=== PATIENT | female | born 1975 | race Caucasian/White ===

== ENCOUNTER 2016-09-14 16:43 | Inpatient (IN) | payer OTHER ==
[2016-09-14] MEDS ORDERED: ONDANSETRON 4 MG/2 ML VIAL IVPUSH ONE (17:27)
[2016-09-14] MEDS ORDERED: morphine CARPU-JECT 4 MG/1 ML DISP.SYRIN IVPUSH ONE ×2 (17:27→18:11)
[2016-09-14] MEDS ORDERED: SODIUM CHLORIDE 1,000 ML IV STA (17:27)
[2016-09-14] MEDS ORDERED: morphine CARPU-JECT 4 MG/1 ML DISP.SYRIN ONE (17:31)
[2016-09-14] MEDS ORDERED: ONDANSETRON 4 MG/2 ML VIAL ONE (17:32)
--- NOTE | 2016-09-14 17:38 | PDOC ---
History of Present Illness - General History Source: Patient Exam Limitations: No Limitations - History of Present Illness Initial Comments: 09/14/16 17:47 The patient is a 41 year old female, with a significant past medical history of GERD, Gastritis who presents to the emergency department with right flank and right upper quadrant abdominal pain. The patient states her abdominal pain began 2 days ago which was intermittent however had progressively worsened today. Patient describes the pain as stabbing, more than 10/10 in severity, radiating to her back and across her lower abdomen. The patient reports associated nausea but denies vomiting, diarrhea or constipation. Patient admits to taking omeprazole and Motrin however denies any relief. She denies dysuria, frequency, urgency or hematuria. She denies chest pain, headache or dizziness. Allergies: NKA Past surgical history: Appendectomy Social history: None PCP: None <Rossy Velarde - Last Filed: 09/14/16 18:09> - General History Source: Patient Exam Limitations: No Limitations <Josh Helton - Last Filed: 09/19/16 23:12> - General Chief Complaint: Pain Stated Complaint: STOMACH PAIN Time Seen by Provider: 09/14/16 17:04 Past History <Rossy Velarde - Last Filed: 09/14/16 18:09> - Past Medical History GI Disorders: Yes (gastritis) - Surgical History Appendectomy: Yes - Psycho/Social/Smoking Cessation Hx Anxiety: No Suicidal Ideation: No Smoking History: Never smoked Have you smoked in the past 12 months: No Information on smoking cessation initiated: No Hx Alcohol Use: No Drug/Substance Use Hx: No Substance Use Type: None <Josh Helton - Last Filed: 09/19/16 23:12> - Past Medical History Allergies/Adverse Reactions: Allergies Allergy/AdvReac Type Severity Reaction Status Date / Time No Known Allergies Allergy Verified 09/14/16 16:44 Home Medications: Ambulatory Orders Ondansetron [Zofran Odt -] 4 mg SL TID PRN #21 od.tablet 09/16/16 Oxycodone HCl/Acetaminophen [Percocet 5-325 mg Tablet] 1 tab PO Q6H PRN #20 tablet MDD 4 tabs 09/16/16 Review of Systems - Review of Systems Able to Perform ROS?: Yes Comments:: 09/14/16 17:49 GENERAL/CONSTITUTIONAL: No fever or chills. No weakness. HEAD, EYES, EARS, NOSE AND THROAT: No change in vision. No ear pain or discharge. No sore throat. CARDIOVASCULAR: No chest pain or shortness of breath. RESPIRATORY: No cough, wheezing, or hemoptysis. GASTROINTESTINAL: + nausea. + RLQ abdominal pain. No vomiting, diarrhea or constipation. GENITOURINARY: + R flank pain. No dysuria, frequency, or change in urination. MUSCULOSKELETAL: No joint or muscle swelling or pain. No neck or back pain. SKIN: No rash NEUROLOGIC: No headache, vertigo, loss of consciousness, or change in strength/ sensation. ENDOCRINE: No increased thirst. No abnormal weight change. HEMATOLOGIC/LYMPHATIC: No anemia, easy bleeding, or history of blood clots. ALLERGIC/IMMUNOLOGIC: No hives or skin allergy. <Rossy Velarde - Last Filed: 09/14/16 18:09> *Physical Exam - Vital Signs Last Vital Signs Temp Pulse Resp BP Pulse Ox 98.4 F 88 18 158/103 100 09/14/16 16:45 09/14/16 16:45 09/14/16 16:45 09/14/16 16:45 09/14/16 16:45 - Physical Exam Comments: 09/14/16 17:51 GENERAL: Awake, alert, and fully oriented, in moderate distress. + Uncomfortable appearing. HEAD: No signs of trauma EYES: PERRLA, EOMI, sclera anicteric, conjunctiva clear ENT: Auricles normal inspection, hearing grossly normal, nares patent, oropharynx clear without exudates. Moist mucosa NECK: Normal ROM, supple, no lymphadenopathy, JVD, or masses LUNGS: Breath sounds equal, clear to auscultation bilaterally. No wheezes, and no crackles HEART: Regular rate and rhythm, normal S1 and S2, no murmurs, rubs or gallops ABDOMEN: + R CVA tenderness. Gutierrez sign negative. Soft, nontender, normoactive bowel sounds. No guarding, no rebound. No masses EXTREMITIES: Normal range of motion, no edema. No clubbing or cyanosis. No cords, erythema, or tenderness NEUROLOGICAL: Cranial nerves II through XII grossly intact. Normal speech, normal gait SKIN: Warm, Dry, normal turgor, no rashes or lesions noted. <Rossy Velarde - Last Filed: 09/14/16 18:09> - Vital Signs Last Vital Signs Temp Pulse Resp BP Pulse Ox 98.4 F 88 18 158/103 100 09/14/16 16:45 09/14/16 16:45 09/14/16 16:45 09/14/16 16:45 09/14/16 16:45 <Josh Helton - Last Filed: 09/19/16 23:12> ED Treatment Course - LABORATORY CBC & Chemistry Diagram: 09/14/16 17:45 09/14/16 17:45 - Medications Given in the ED: ED Medications Discontinued Medications Generic Name Dose Route Start Last Admin Trade Name Freq PRN Reason Stop Dose Admin Morphine Sulfate 4 mg 09/14/16 17:27 09/14/16 17:40 Morphine Injection - IVPUSH 09/14/16 17:28 4 mg ONCE ONE Administration Ondansetron HCl 4 mg 09/14/16 17:27 09/14/16 17:40 Zofran Injection IVPUSH 09/14/16 17:28 4 mg ONCE ONE Administration <Rossy Velarde - Last Filed: 09/14/16 18:09> - LABORATORY CBC & Chemistry Diagram: 09/16/16 06:20 09/16/16 06:20 - RADIOLOGY Radiology Studies Ordered: Category Date Time Status SPIRAL- RENAL-STONE CT [CT] Stat CT Scan 09/14/16 17:26 Ordered ABDOMEN US -LIMITED [US] Stat Ultrasound 09/14/16 17:26 Ordered <Josh Helton - Last Filed: 09/19/16 23:12> Medical Decision Making - Medical Decision Making 09/14/16 17:31 A portion of this note was documented by scribe services under my direction. I have reviewed the details of the note, within reason, and agree with the documentation with the following case summary and management plan written by me. Patient treated in the ED. Nursing notes are reviewed and incorporated into the medical decision-making. Vital signs reviewed. Peripheral IV access obtained by the nurse, laboratory studies are drawn and sent, reviewed and interpreted by myself. Vital Signs Temp Pulse Resp BP Pulse Ox 98.4 F 88 18 158/103 100 09/14/16 16:45 09/14/16 16:45 09/14/16 16:45 09/14/16 16:45 09/14/16 16:45 41-year-old female patient with history of GERD presents with right flank and right upper quadrant abdominal pain. Patient has a history of appendectomy. Since Wednesday, the patient's been having a waxing and waning constant pain with associated nausea but no vomiting or fevers. Reports normal bowel movements. Denies dysuria or urinary frequency. Differential includes biliary pathology, stridorous, renal colic, pollen nephritis. We'll obtain a spiral CT, right upper quadrant ultrasound, labs, urinalysis and reassess. <Josh Helton - Last Filed: 09/19/16 23:12> *DC/Admit/Observation/Transfer - Attestations Scribe Attestion: 09/14/16 17:53 Documentation prepared by Rossy Velarde, acting as chief medical technologist for Josh Helton MD <Rossy Velarde - Last Filed: 09/14/16 18:09> <Josh Helton - Last Filed: 09/19/16 23:12> Diagnosis at time of Disposition: Acute cholecystitis - Discharge Dispostion Disposition: HOME Condition at time of disposition: Improved - Prescriptions
[2016-09-14 17:55] LABS: BASOPHIL 0.6 % (0-2.0); EOSINOPHIL 1.8 % (0-4.5); MCHC 30.2 g/dl (32.0-36.0); MEAN CELL VOLUME 63.1 fl (80-96); MEAN PLT VOLUME 8.6 fl (7.5-11.1); PLATELET COUNT 346 K/MM3 (134-434); RDW 19.7 % (11.6-15.6); WHITE BLOOD COUNT 9.3 K/mm3 (4.0-10.0)
[2016-09-14 17:57] LABS: URINE APPEARANCE CLEAR; URINE BILIRUBIN NEGATIVE (NEGATIVE); URINE BLOOD 3+ (NEGATIVE); URINE COLOR COLORLESS; URINE GLUCOSE (UA) NEGATIVE (NEGATIVE); URINE KETONE NEGATIVE (NEGATIVE); URINE LEUK ESTERASE TRACE (NEGATIVE); URINE NITRITE NEGATIVE (NEGATIVE); URINE PROTEIN NEGATIVE (NEGATIVE); URINE UROBILINOGEN NEGATIVE E.U./dl (0.2-1.0)
[2016-09-14 17:59] LABS: URINE RBC 8 /hpf (0-3); URINE WBC 1 /hpf (3-5)
[2016-09-14 18:16] LABS: ALK PHOS 120 U/L (45-117); ANION GAP 10 (8-16); BILIRUBIN,TOTAL 0.2 mg/dL (0.2-1.0); CALCIUM 9.2 mg/dL (8.5-10.1); CO2 24 mmol/L (21-32); CREATININE 0.7 mg/dL (0.55-1.02); GLUCOSE,RANDOM 114 mg/dL (74-106); SGOT/AST 14 U/L (15-37); SGPT/ALT 25 U/L (12-78)
[2016-09-14 18:28] LABS: MCH 19.1 pg (25.7-33.7)
[2016-09-14] MEDS ORDERED: HYDROmorphone HCL CARPU-JECT 1 MG/1 ML DISP.SYRIN IVPB ONE (18:34)
[2016-09-14] MEDS ORDERED: HYDROmorphone HCL CARPU-JECT 1 MG/1 ML DISP.SYRIN ONE (18:59)
[2016-09-14 20:00] LABS: PLATELET ESTIMATE ADEQUATE (NORMAL)
--- NOTE | 2016-09-14 20:14 | PDOC ---
*Physical Exam - Vital Signs Last Vital Signs Temp Pulse Resp BP Pulse Ox 98.4 F 88 18 158/103 100 09/14/16 16:45 09/14/16 16:45 09/14/16 16:45 09/14/16 16:45 09/14/16 16:45 <Johnnie Powell - Last Filed: 09/14/16 23:07> - Vital Signs Last Vital Signs Temp Pulse Resp BP Pulse Ox 98.4 F 88 18 158/103 100 09/14/16 16:45 09/14/16 16:45 09/14/16 16:45 09/14/16 16:45 09/14/16 16:45 <Diony Mcconnellta - Last Filed: 09/15/16 04:58> Heart Score/ECG Review - ECG Impressions Comment:: 09/15/16 04:57 NSR @81bpm Prolonged QT Abnormal ECG <Diony Mcconnellta - Last Filed: 09/15/16 04:58> ED Treatment Course - LABORATORY CBC & Chemistry Diagram: 09/14/16 17:45 09/14/16 17:45 - ADDITIONAL ORDERS Additional order review: Laboratory Results 09/14/16 09/14/16 17:45 17:45 Sodium 141 Potassium 3.5 Chloride 107 Carbon Dioxide 24 Anion Gap 10 BUN 11 Creatinine 0.7 Creat Clearance w eGFR > 60 Random Glucose 114 H Calcium 9.2 Total Bilirubin 0.2 AST 14 L ALT 25 Alkaline Phosphatase 120 H Total Protein 8.0 Albumin 4.0 Lipase 277 Serum , Qual Negative Urine Color Colorless Urine Appearance Clear Urine pH 8.0 Urine Protein Negative Urine Glucose (UA) Negative Urine Ketones Negative Urine Blood 3+ H Urine Nitrite Negative Urine Bilirubin Negative Urine Urobilinogen Negative Ur Leukocyte Esterase Trace H Urine RBC 8 Urine WBC 1 Ur Epithelial Cells Rare 09/14/16 17:45 RBC 5.14 MCV 63.1 L MCHC 30.2 L RDW 19.7 H MPV 8.6 Neutrophils % 64.0 Lymphocytes % 28.7 Monocytes % 4.9 Eosinophils % 1.8 Basophils % 0.6 - Medications Given in the ED: ED Medications Discontinued Medications Generic Name Dose Route Start Last Admin Trade Name Freq PRN Reason Stop Dose Admin Sodium Chloride 1,000 mls @ 1,000 mls/hr 09/14/16 17:27 09/14/16 17:40 Normal Saline - IV 09/14/16 18:26 1,000 mls/hr ASDIR STA Administration Morphine Sulfate 4 mg 09/14/16 17:27 09/14/16 17:40 Morphine Injection - IVPUSH 09/14/16 17:28 4 mg ONCE ONE Administration Ondansetron HCl 4 mg 09/14/16 17:27 09/14/16 17:40 Zofran Injection IVPUSH 09/14/16 17:28 4 mg ONCE ONE Administration <Johnnie Powell - Last Filed: 09/14/16 23:07> - LABORATORY CBC & Chemistry Diagram: 09/14/16 17:45 09/14/16 17:45 - ADDITIONAL ORDERS Additional order review: Laboratory Results 09/14/16 09/14/16 17:45 17:45 Sodium 141 Potassium 3.5 Chloride 107 Carbon Dioxide 24 Anion Gap 10 BUN 11 Creatinine 0.7 Creat Clearance w eGFR > 60 Random Glucose 114 H Calcium 9.2 Total Bilirubin 0.2 AST 14 L ALT 25 Alkaline Phosphatase 120 H Total Protein 8.0 Albumin 4.0 Lipase 277 Serum , Qual Negative Urine Color Colorless Urine Appearance Clear Urine pH 8.0 Urine Protein Negative Urine Glucose (UA) Negative Urine Ketones Negative Urine Blood 3+ H Urine Nitrite Negative Urine Bilirubin Negative Urine Urobilinogen Negative Ur Leukocyte Esterase Trace H Urine RBC 8 Urine WBC 1 Ur Epithelial Cells Rare 09/14/16 17:45 RBC 5.14 MCV 63.1 L MCHC 30.2 L RDW 19.7 H MPV 8.6 Neutrophils % 64.0 Lymphocytes % 28.7 Monocytes % 4.9 Eosinophils % 1.8 Basophils % 0.6 - Medications Given in the ED: ED Medications Discontinued Medications Generic Name Dose Route Start Last Admin Trade Name Freq PRN Reason Stop Dose Admin Sodium Chloride 1,000 mls @ 1,000 mls/hr 09/14/16 17:27 09/14/16 17:40 Normal Saline - IV 09/14/16 18:26 1,000 mls/hr ASDIR STA Administration Morphine Sulfate 4 mg 09/14/16 17:27 09/14/16 17:40 Morphine Injection - IVPUSH 09/14/16 17:28 4 mg ONCE ONE Administration Ondansetron HCl 4 mg 09/14/16 17:27 09/14/16 17:40 Zofran Injection IVPUSH 09/14/16 17:28 4 mg ONCE ONE Administration <Nena Mcconnell - Last Filed: 09/15/16 04:58> Progress Note - Progress Note Progress Note: Patient endorse to me by Dr. Helton and is currently being worked up for kidney stones and gallstones. Pt is on her way to radiology for CT scan and ultrasound. <Nena Mcconnell - Last Filed: 09/15/16 04:58> Medical Decision Making - Medical Decision Making 09/14/16 22:[address] Micky Rosado (via answering service) and patient's case was discussed. 09/14/16 23:[address] Goodson. Patient will be admitted. <Nena Mcconnell - Last Filed: 09/15/16 04:58> *DC/Admit/Observation/Transfer - Discharge Dispostion Admit: Yes - Attestations Physician Attestion: 09/14/16 20:12 I, Dr. Johnnie Powell, attest that this document has been prepared under my direction and personally reviewed by me in its entirety. I further attest, that it accurately reflects all work, treatment, procedures and medical decision -making performed by me. <Johnnie Powell - Last Filed: 09/14/16 23:07> - Attestations Scribe Attestion: 09/14/16 20:15 Documentation prepared by Nena Mcconnell, acting as er medical technician for Johnnie Powell MD/DO. <Nena Mcconnell - Last Filed: 09/15/16 04:58> Diagnosis at time of Disposition: Acute cholecystitis - Discharge Dispostion Condition at time of disposition: Improved
[2016-09-14] MEDS ORDERED: METRONIDAZOLE 500 MG PREMIXED 100 ML IVPB ONE (22:43)
[2016-09-14] MEDS ORDERED: LEVOFLOXACIN 750 MG IVPB 150 ML IVPB ONE ×2 (22:43→23:09)
[2016-09-14] MEDS ORDERED: ONDANSETRON 4 MG/2 ML VIAL IVPUSH PRN (23:41)
[2016-09-14] MEDS ORDERED: morphine CARPU-JECT 4 MG/1 ML DISP.SYRIN IVPUSH PRN (23:41)
[2016-09-14] MEDS ORDERED: DEXTROSE 5%-0.45% SALINE 1,000 ML IV SCH (23:45)
[2016-09-15] MEDS ORDERED: ONDANSETRON 4 MG/2 ML VIAL ONE (00:06)
[2016-09-15] MEDS ORDERED: METRONIDAZOLE 500 MG PREMIXED 100 ML IVPB ONE (00:25)
--- NOTE | 2016-09-15 01:36 | HP ---
CHIEF COMPLAINT: Right Upper Quadrant Pain/ R- Flank Pain PCP: None HISTORY OF PRESENT ILLNESS: This is a 41 y/o female with HTN ( diet controlled), GERD. Who reports RUQ pain x 2 days with pain now radiating to R- flank with nausea since today. Patient reports having pain 10/10 on arrival. Patient denies fever, chills, cough, SOB, CP, vomiting, diarrhea, constipation, dysuria. ER course was notable for: (1) US: Cholelithiasis, probable acute cholecystitis. No biliary tract dilitation is seen. Possible diffuse hepatic steatosis (2) CTAP: no evidence of urolithiasis or obstructive uropathy. Cholelithiasis is noted. Gallbladder wall edema (3) Hb 9.8 Recent Travel: None PAST MEDICAL HISTORY: HTN GERD PAST SURGICAL HISTORY: Appendectomy Social History: Smoking: Never Alcohol: Denies Drugs: Denies Lives with spouse, daughter, not employed Family History: None pertinent per patient Allergies No Known Allergies Allergy (Verified 09/14/16 16:44) HOME MEDICATIONS: Home Medications Medication Instructions Recorded NK [No Known Home Medication] 09/14/16 REVIEW OF SYSTEMS CONSTITUTIONAL: Absent: fever, chills, diaphoresis, generalized weakness, malaise, loss of appetite, weight change HEENT: Absent: rhinorrhea, nasal congestion, throat pain, throat swelling, difficulty swallowing, mouth swelling, ear pain, eye pain, visual changes CARDIOVASCULAR: Absent: chest pain, syncope, palpitations, irregular heart rate, lightheadedness , peripheral edema RESPIRATORY: Absent: cough, shortness of breath, dyspnea with exertion, orthopnea, wheezing, stridor, hemoptysis GASTROINTESTINAL: abdominal pain, nausea Absent: abdominal distension, vomiting, diarrhea, constipation, melena, hematochezia GENITOURINARY: Absent: dysuria, frequency, urgency, hesitancy, hematuria, flank pain, genital pain MUSCULOSKELETAL: Absent: myalgia, arthralgia, joint swelling, back pain, neck pain SKIN: Absent: rash, itching, pallor HEMATOLOGIC/IMMUNOLOGIC: Absent: easy bleeding, easy bruising, lymphadenopathy, frequent infections ENDOCRINE: Absent: unexplained weight gain, unexplained weight loss, heat intolerance, cold intolerance NEUROLOGIC: Absent: headache, focal weakness or paresthesias, dizziness, unsteady gait, seizure, mental status changes, bladder or bowel incontinence PSYCHIATRIC: Absent: anxiety, depression, suicidal or homicidal ideation, hallucinations. PHYSICAL EXAMINATION GENERAL: Obese, awake, alert, and fully oriented, in no acute distress. HEAD: Normal with no signs of trauma. EYES: Pupils equal, round and reactive to light, extraocular movements intact, sclera anicteric, conjunctiva clear. No lid lag. EARS, NOSE, THROAT: Ears normal, nares patent, oropharynx clear without exudates. Moist mucous membranes. NECK: Normal range of motion, supple without lymphadenopathy, JVD, or masses. LUNGS: Breath sounds equal, clear to auscultation bilaterally. No wheezes, and no crackles. No accessory muscle use. HEART: Regular rate and rhythm, normal S1 and S2 without murmur, rub or gallop. ABDOMEN: Soft, not distended, no guarding, no rebound, no masses. No hepatomegaly or splenomegaly. Epigastric, RUQ, LLQ tendeness, hypoactive bowel sounds MUSCULOSKELETAL: Normal range of motion at all joints. No bony deformities or tenderness. No CVA tenderness. UPPER EXTREMITIES: 2+ pulses, warm, well-perfused. No cyanosis. No clubbing. No peripheral edema. LOWER EXTREMITIES: 2+ pulses, warm, well-perfused. No calf tenderness. No peripheral edema. NEUROLOGICAL: Cranial nerves II-XII intact. Normal speech. Gait not observed. PSYCHIATRIC: Cooperative. Good eye contact. Appropriate mood and affect. SKIN: Warm, dry, normal turgor, no rashes or lesions noted, normal capillary refill. Laboratory Results - last 24 hr 09/14/16 09/14/16 09/14/16 17:45 17:45 17:45 WBC 9.3 RBC 5.14 Hgb 9.8 L Hct 32.4 MCV 63.1 L MCH 19.1 L MCHC 30.2 L RDW 19.7 H Plt Count 346 MPV 8.6 Neutrophils % 64.0 Lymphocytes % 28.7 Monocytes % 4.9 Eosinophils % 1.8 Basophils % 0.6 Platelet Estimate Adequate RBC Morphology See commen Sodium 141 Potassium 3.5 Chloride 107 Carbon Dioxide 24 Anion Gap 10 BUN 11 Creatinine 0.7 Creat Clearance w eGFR > 60 Random Glucose 114 H Calcium 9.2 Total Bilirubin 0.2 AST 14 L ALT 25 Alkaline Phosphatase 120 H Total Protein 8.0 Albumin 4.0 Lipase 277 Serum , Qual Negative Urine Color Colorless Urine Appearance Clear Urine pH 8.0 Ur Specific [place] 1.015 Urine Protein Negative Urine Glucose (UA) Negative Urine Ketones Negative Urine Blood 3+ H Urine Nitrite Negative Urine Bilirubin Negative Urine Urobilinogen Negative Ur Leukocyte Esterase Trace H Urine RBC 8 Urine WBC 1 Ur Epithelial Cells Rare ASSESSMENT/PLAN: This is a 41 y/o female with a PMHx of: HTN (diet controlled), GERD. Who presents to the ED with RUQ, R-Flank Pain. Admitted to M/S Acute Cholecystitis for further evaluation of their emergent condition. Plan: 1. Acute Cholecystitis - CTAP- see above - US- see above - Levaquin given in ED - Appreciate ID Consult - Monitor CBC, BMP - Monitor vitals 2. Nausea - Zofran IV - IVF - Monitor lytes 3. HTN - Controlled - Currently no meds, diet controlled 4. F/E/N - D51/2NS@75ml/hr - Replete lytes prn - Keep NPO 5. DVT Prophylaxis - OOB - SCDs - Heparin SQ Code Status: Full Code Dispo: Requires Inpatient Care Problem List - Problem (1) Acute cholecystitis Code(s): K81.0 - ACUTE CHOLECYSTITIS (2) Cholelithiasis Code(s): K80.20 - CALCULUS OF GALLBLADDER W/O CHOLECYSTITIS W/O OBSTRUCTION (3) Nausea Code(s): R11.0 - NAUSEA (4) HTN (hypertension) Code(s): I10 - ESSENTIAL (PRIMARY) HYPERTENSION (5) DVT prophylaxis Code(s): AAB1176 - Visit type - Emergency Visit Emergency Visit: Yes ED Registration Date: 09/14/16 Care time: The patient presented to the Emergency Department on the above date and was hospitalized for further evaluation of their emergent condition. - New Patient This patient is new to me today: Yes Date on this admission: 09/15/16 - Critical Care Critical Care patient: No
[2016-09-15 02:19] VITALS: BMI 33.9
[2016-09-15] MEDS: METRONIDAZOLE 500 MG PREMIXED 100 ML IVPB SCH ×2 (02:24→10:56)
[2016-09-15 06:47] LABS: BASOPHIL 0.3 % (0-2.0); EOSINOPHIL 0.5 % (0-4.5); MCHC 29.8 g/dl (32.0-36.0); MEAN CELL VOLUME 63.9 fl (80-96); MEAN PLT VOLUME 8.8 fl (7.5-11.1); PLATELET COUNT 267 K/MM3 (134-434); RDW 19.2 % (11.6-15.6); WHITE BLOOD COUNT 10.8 K/mm3 (4.0-10.0)
[2016-09-15 07:15] LABS: ANION GAP 10 (8-16); CALCIUM 8.2 mg/dL (8.5-10.1); CO2 26 mmol/L (21-32); CREATININE 0.6 mg/dL (0.55-1.02); GLUCOSE,RANDOM 135 mg/dL (74-106)
--- NOTE | 2016-09-15 09:21 | CONSULT ---
- Consultation REQUESTING PROVIDER: Yani RODRIGUEZ CONSULT REQUEST: We have been asked to surgically evaluate this patient for tx. of symptomatic gallbladder disease. PCP:Tamra Lomeli NP HISTORY OF PRESENT ILLNESS:ELY who is a 41 y/o female w/#days of progressive RUQ abdominal pain w/associated nausea and vomiting; never had this before; NOC; occurred after eating; pain radiates to the back and right shoulder ; no dark urine/light stools; no other GI/ c/o. PMHx: none PSHx: open appendectomy Home Medications Medication Instructions Recorded NK [No Known Home Medication] 09/14/16 Allergies Allergy/AdvReac Type Severity Reaction Status Date / Time No Known Allergies Allergy Verified 09/14/16 16:44 PHYSICAL EXAM: GENERAL: Awake, alert, and fully oriented, in no acute distress. HEAD: Normal with no signs of trauma. EYES: sclera anicteric, conjunctiva clear. NECK: Normal ROM, supple without lymphadenopathy, JVD, or masses. ABDOMEN: Soft, tender RUQ w/ [place] sign, not distended, normoactive bowel sounds, there is guarding, no rebound, no masses. No organomegaly. Healed appendectomy scar; no hernias. MUSCULOSKELETAL: Normal ROM at all joints. No bony deformities or tenderness. No CVA tenderness. UPPER EXTREMITIES: 2+ pulses, warm, well-perfused. No cyanosis. Cap refill <2 seconds. No peripheral edema. LOWER EXTREMITIES: 2+ pulses, warm, well-perfused. No calf tenderness. No peripheral edema. NEUROLOGICAL: Normal speech, gait not observed. PSYCH: Cooperative. Good eye contact. Appropriate mood and affect. SKIN: Warm, dry, normal turgor, no rashes or lesions noted. Vital Signs Temperature 97.2 F L 09/15/16 02:13 Pulse Rate 74 09/15/16 02:13 Respiratory Rate 20 09/15/16 02:13 Blood Pressure 146/84 09/15/16 02:13 O2 Sat by Pulse Oximetry (%) 96 09/15/16 02:13 Lab Results WBC 10.8 K/mm3 (4.0-10.0) H 09/15/16 05:50 RBC 4.65 M/mm3 (3.60-5.2) 09/15/16 05:50 Hgb 8.8 GM/dL (10.7-15.3) L D 09/15/16 05:50 Hct 29.7 % (32.4-45.2) L 09/15/16 05:50 MCV 63.9 fl (80-96) L 09/15/16 05:50 MCHC 29.8 g/dl (32.0-36.0) L 09/15/16 05:50 RDW 19.2 % (11.6-15.6) H 09/15/16 05:50 Plt Count 267 K/MM3 (134-434) D 09/15/16 05:50 Sodium 141 mmol/L (136-145) 09/15/16 05:50 Potassium 3.8 mmol/L (3.5-5.1) 09/15/16 05:50 Chloride 105 mmol/L (98-107) 09/15/16 05:50 Carbon Dioxide 26 mmol/L (21-32) 09/15/16 05:50 Anion Gap 10 (8-16) 09/15/16 05:50 BUN 6 mg/dL (7-18) L D 09/15/16 05:50 Creatinine 0.6 mg/dL (0.55-1.02) 09/15/16 05:50 Random Glucose 135 mg/dL (74-106) H 09/15/16 05:50 Calcium 8.2 mg/dL (8.5-10.1) L 09/15/16 05:50 Blood Type B POSITIVE 09/15/16 05:50 Antibody Screen Negative 09/15/16 05:50 labd/imaging w/u to date reviewed. IMP:acute cholecystitis/cholelithiasis PLAN: lap haylee possible open; r/b/t/alternatives d/w the patient and her family in [place] and they wish to proceed. Micky Rosado MD FACS Visit type - Case Type Case Type: ED Admission - Emergency Emergency Visit: Yes ED Registration Date: 09/14/16 Care time: The patient presented to the Emergency Department on the above date and was hospitalized for further evaluation of their emergent condition. - New patient This patient is new to me today: Yes Date on this admission: 09/15/16 - Critical Care Critical Care patient: No
[2016-09-15] MEDS ORDERED: LEVOFLOXACIN 750 MG IVPB 150 ML IVPB SCH (10:00)
[2016-09-15 11:43] LABS: PLATELET ESTIMATE ADEQUATE (NORMAL)
[2016-09-15 11:44] LABS: ANISOCYTOSIS 2+; HYPOCHROMIA 2+
[2016-09-15] MEDS ORDERED: MIDAZOLAM HCL 2 MG/2 ML SINGLE DOSE VIAL ONE (12:57)
[2016-09-15] MEDS ORDERED: BUPIVACAINE HCL/PF 0.5% (5MG/ML) 10 ML VIAL ONE (12:59)
[2016-09-15] MEDS ORDERED: PROPOFOL 20 ML ONE (13:02)
[2016-09-15] MEDS ORDERED: ROCURONIUM BROMIDE 50 MG/5 ML VIAL ONE (13:02)
[2016-09-15] MEDS ORDERED: LEVOFLOXACIN 500 MG PREMIX BAG IVPB ONE (13:12)
--- NOTE | 2016-09-15 13:33 | PN ---
Physical Exam: SUBJECTIVE: Patient seen and examined. Pain is controlled. No fevers/chills. Nausea improved. OBJECTIVE: Vital Signs Period Temp Pulse Resp BP Sys/Walls Pulse Ox Last 24 Hr 97.2 F-97.8 F 74-86 16-20 136-153/75-94 96-100 GENERAL: The patient is awake, alert, and fully oriented, in no acute distress. HEAD: Normal with no signs of trauma. EYES: PERRL, extraocular movements intact, sclera anicteric, conjunctiva clear. No ptosis. ENT: Ears normal, nares patent, oropharynx clear without exudates, moist mucous membranes. NECK: Trachea midline, full range of motion, supple. LUNGS: Breath sounds equal, clear to auscultation bilaterally, no wheezes, no crackles, no accessory muscle use. HEART: Regular rate and rhythm, S1, S2 without murmur, rub or gallop. ABDOMEN: Soft, tender RUQ, nondistended, normoactive bowel sounds, no guarding, no rebound, no hepatosplenomegaly, no masses. EXTREMITIES: 2+ pulses, warm, well-perfused, no edema. NEUROLOGICAL: Cranial nerves II through XII grossly intact. Normal speech, gait not observed. PSYCH: Normal mood, normal affect. SKIN: Warm, dry, normal turgor, no rashes or lesions noted Laboratory Results - last 24 hr 09/15/16 09/15/16 09/15/16 05:50 05:50 05:50 WBC 10.8 H RBC 4.65 Hgb 8.8 L D Hct 29.7 L MCV 63.9 L MCH 19.0 L MCHC 29.8 L RDW 19.2 H Plt Count 267 D MPV 8.8 Neutrophils % 74.0 Lymphocytes % 20.4 D Monocytes % 4.8 Eosinophils % 0.5 Basophils % 0.3 Platelet Estimate Adequate Hypochromic-Microcytic 2+ Anisocytosis 2+ Sodium 141 Potassium 3.8 Chloride 105 Carbon Dioxide 26 Anion Gap 10 BUN 6 L D Creatinine 0.6 Random Glucose 135 H Calcium 8.2 L Blood Type B POSITIVE Antibody Screen Negative Active Medications Generic Name Dose Route Start Last Admin Trade Name Freq PRN Reason Stop Dose Admin Dextrose/Sodium Chloride 1,000 mls @ 75 mls/hr 09/14/16 23:45 09/15/16 00:36 D5-1/2ns - IV 75 mls/hr ASDIR JESS Administration Metronidazole 100 mls @ 100 mls/hr 09/15/16 02:00 09/15/16 10:56 Flagyl 500mg Premixed Ivpb - IVPB 100 mls/hr Q8H-IV JESS Administration Levofloxacin 150 mls @ 100 mls/hr 09/15/16 10:00 09/15/16 10:58 Levaquin 750 Mg Premixed Ivpb - IVPB 100 mls/hr DAILY JESS Administration Morphine Sulfate 4 mg 09/14/16 23:41 Morphine Injection - IVPUSH Q4H PRN PAIN Ondansetron HCl 4 mg 09/14/16 23:41 09/15/16 00:13 Zofran Injection IVPUSH 4 mg Q6H PRN Administration NAUSEA AND/OR VOMITING ASSESSMENT/PLAN: 41 year old female with a history of HTN and GERD admitted with acute cholecystitis. 1. Acute Cholecystitis -Pre-operative antibiotics given -application spec for OR today -Continue Zofran prn nausea and morphine prn pain 2. HTN -BPs at goal off medications 3. F/E/N - Replete lytes prn - Keep NPO 5. DVT Prophylaxis - OOB - SCDs - Heparin SQ Code Status: Full Code Dispo: Requires Inpatient Care Visit type - Emergency Visit Emergency Visit: Yes ED Registration Date: 09/14/16 Care time: The patient presented to the Emergency Department on the above date and was hospitalized for further evaluation of their emergent condition. - New Patient This patient is new to me today: Yes Date on this admission: 09/20/16 - Critical Care Critical Care patient: No - Discharge Referral Referred to [facility] No
[2016-09-15] MEDS ORDERED: NEOSTIGMINE METHYLSULFATE 0.5 MG/ML - 10 ML MDV ONE (14:18)
[2016-09-15] MEDS ORDERED: oxyCODONE HCL 5 MG TABLET PO PRN (14:53)
[2016-09-15] MEDS ORDERED: ONDANSETRON 4 MG/2 ML VIAL IVPUSH PRN ×2 (14:55→15:00)
--- NOTE | 2016-09-15 14:59 | OP ---
Operative Note - Note: Operative Date: 09/15/16 Pre-Operative Diagnosis: acute choleycystitis, cholelithiasis Operation: laparoscopic choleycystectomy Post-Operative Diagnosis: Same as Pre-op Surgeon: Micky Rosado Diecast Machine Operator: Karla Garner Anesthesiologist/OUTSIDE PLANT TECHNICIAN: Miryam Ruiz MD Anesthesia: General Specimens Removed: gall bladder Estimated Blood Loss (mls): 20 Fluid Volume Replaced (mls): 700 Operative Report Dictated: Yes
[2016-09-15] MEDS ORDERED: LACTATED RINGERS SOLUTION 1,000 ML IV SCH (15:00)
--- NOTE | 2016-09-15 15:00 | SURG ---
Surgery Chief Substation Operator Note Chief Substation Operator: Karla Garner PA-C Date of Service: 09/15/16 Diagnosis: acute choleycystitis,cholelithiasis Procedure: laparosopic cholecystectomy I was present for the entirety of the operative procedure. For further detail, please refer to operative report. Visit type - Case Type Case Type: ED Admission - Emergency Emergency Visit: Yes ED Registration Date: 09/14/16 Care time: The patient presented to the Emergency Department on the above date and was hospitalized for further evaluation of their emergent condition. - New patient This patient is new to me today: Yes Date on this admission: 09/15/16 - Critical Care Critical Care patient: No
[2016-09-15] MEDS: DEXTROSE 5%-0.45% SALINE 1,000 ML IV SCH (16:18)
--- NOTE | 2016-09-15 17:21 | EKG ---
Test Reason : Blood Pressure : / mmHG Vent. Rate : 081 BPM Atrial Rate : 081 BPM P-R Int : 178 ms QRS Dur : 086 ms QT Int : 418 ms P-R-T Axes : 027 003 028 degrees QTc Int : 485 ms NORMAL SINUS RHYTHM PROLONGED QT ABNORMAL ECG NO PREVIOUS ECGS AVAILABLE REPEAT INDICATED Confirmed by MIGUEL ANGEL LADD MD ([id number] on 09/15/2016 5:20:54 PM Referred By: Confirmed By:MIGUEL ANGEL LADD MD
[2016-09-15] MEDS: ACETAMINOPHEN 325 MG TABLET (FP) PO PRN (18:18)
[2016-09-15] MEDS: HEPARIN NA (PORCINE) 5,000 UNITS/ML 1ML VIAL SQ SCH (21:58)
[2016-09-16] MEDS: oxyCODONE HCL 5 MG TABLET PO PRN ×3 (01:13→13:20)
[2016-09-16] MEDS: DEXTROSE 5%-0.45% SALINE 1,000 ML IV SCH (03:47)
[2016-09-16 07:35] LABS: BASOPHIL 0.1 % (0-2.0); MCHC 30.7 g/dl (32.0-36.0); MEAN CELL VOLUME 63.4 fl (80-96); NEUTROPHILS 75.4 % (42.8-82.8); PLATELET COUNT 287 K/MM3 (134-434); RDW 19.9 % (11.6-15.6)
[2016-09-16 07:40] LABS: MCH 19.5 pg (25.7-33.7)
[2016-09-16 08:25] LABS: ALBUMIN 3.3 g/dl (3.4-5.0); ALK PHOS 114 U/L (45-117); ANION GAP 12 (8-16); BILIRUBIN,TOTAL 0.3 mg/dL (0.2-1.0); CALCIUM 8.3 mg/dL (8.5-10.1); CO2 24 mmol/L (21-32); CREATININE 0.6 mg/dL (0.55-1.02); GLUCOSE,RANDOM 131 mg/dL (74-106); SGOT/AST 33 U/L (15-37); SGPT/ALT 52 U/L (12-78); TOT PROT 7.1 g/dl (6.4-8.2)
--- NOTE | 2016-09-16 08:37 | PN ---
Progress Note (short form) - Note Progress Note: Surgery- Dr. Rosado Patient seen and examined this morning. Patient states she is having some abdominal pain, described as soreness, but this is controlled. She is tolerating a clear liquid diet, urinating without issue, and ambulating. She denies fever, chills, nausea, vomiting. Last Vital Signs Temp Pulse Resp BP Pulse Ox 98.3 F 79 18 130/74 98 09/16/16 06:00 09/16/16 06:00 09/16/16 06:00 09/16/16 06:00 09/15/16 21:00 CBC, BMP 09/16/16 06:20 09/16/16 06:20 Exam: Gen: NAD Abd: soft, mild incisional tenderness, incisions with band-aids c/d/i Problem List - Problems (1) Acute cholecystitis Assessment/Plan: POD#1 s/p laparoscopic cholecystectomy Advance pt to regular diet, DC IVF, if tolerates regular diet, ok to DC from surgical standpoint Patient instructed to call Dr. Rosado's office for a post-op appointment in one week Pain control, ambulation Patient seen and discussed with Dr. Rosado Code(s): K81.0 - ACUTE CHOLECYSTITIS (2) Cholelithiasis Code(s): K80.20 - CALCULUS OF GALLBLADDER W/O CHOLECYSTITIS W/O OBSTRUCTION
[2016-09-16] MEDS: ACETAMINOPHEN 325 MG TABLET (FP) PO PRN (09:39)
[2016-09-16] MEDS: HEPARIN NA (PORCINE) 5,000 UNITS/ML 1ML VIAL SQ SCH (09:40)
[2016-09-16 14:24] VITALS: BP 148/78; PULSE 69; TEMP 97.9
--- NOTE | 2016-09-16 14:32 | PN ---
Physical Exam: SUBJECTIVE: Patient seen and examined. Still complains of pain and nausea. OBJECTIVE: Vital Signs Period Temp Pulse Resp BP Sys/Walls Pulse Ox Last 24 Hr 97.9 F-98.8 F 66-91 14-20 122-148/60-92 96-100 GENERAL: The patient is awake, alert, and fully oriented, in no acute distress. HEAD: Normal with no signs of trauma. EYES: PERRL, extraocular movements intact, sclera anicteric, conjunctiva clear. No ptosis. ENT: Ears normal, nares patent, oropharynx clear without exudates, moist mucous membranes. NECK: Trachea midline, full range of motion, supple. LUNGS: Breath sounds equal, clear to auscultation bilaterally, no wheezes, no crackles, no accessory muscle use. HEART: Regular rate and rhythm, S1, S2 without murmur, rub or gallop. ABDOMEN: Soft, mild taniya-incisional tenderness, nondistended, normoactive bowel sounds, no guarding, no rebound, no hepatosplenomegaly, no masses. EXTREMITIES: 2+ pulses, warm, well-perfused, no edema. NEUROLOGICAL: Cranial nerves II through XII grossly intact. Normal speech, gait not observed. PSYCH: Normal mood, normal affect. SKIN: Warm, dry, normal turgor, no rashes or lesions noted. Incisions clean, dry , intact. Laboratory Results - last 24 hr 09/16/16 09/16/16 06:20 06:20 WBC 8.0 RBC 4.50 Hgb 8.8 L Hct 28.5 L MCV 63.4 L MCH 19.5 L MCHC 30.7 L RDW 19.9 H Plt Count 287 MPV 9.0 Neutrophils % 75.4 Lymphocytes % 19.0 Monocytes % 5.5 Eosinophils % 0.0 D Basophils % 0.1 Sodium 140 Potassium 3.5 Chloride 104 Carbon Dioxide 24 Anion Gap 12 BUN 6 L Creatinine 0.6 Creat Clearance w eGFR > 60 Random Glucose 131 H Calcium 8.3 L Total Bilirubin 0.3 D AST 33 D ALT 52 D Alkaline Phosphatase 114 Total Protein 7.1 Albumin 3.3 L Active Medications Generic Name Dose Route Start Last Admin Trade Name Freq PRN Reason Stop Dose Admin Acetaminophen 650 mg 09/15/16 14:54 09/16/16 09:39 Tylenol - PO 650 mg Q6H PRN Administration FEVER OR PAIN Heparin Sodium (Porcine) 5,000 unit 09/15/16 22:00 09/16/16 09:40 Heparin - SQ 5,000 unit BID JESS Administration Dextrose/Sodium Chloride 1,000 mls @ 75 mls/hr 09/15/16 15:00 09/16/16 03:47 D5-1/2ns - IV 75 mls/hr ASDIR JESS Administration Ondansetron HCl 4 mg 09/15/16 15:00 09/16/16 13:36 Zofran Injection IVPUSH 4 mg Q6H PRN Administration NAUSEA AND/OR VOMITING Oxycodone HCl 5 mg 09/15/16 14:53 Roxicodone - PO Q6H PRN PAIN LEVEL 1-5 Oxycodone HCl 10 mg 09/15/16 14:54 09/16/16 13:20 Roxicodone - PO 10 mg Q6H PRN Administration PAIN LEVEL 6-10 ASSESSMENT/PLAN: 41 year old female with a history of HTN and GERD admitted with acute cholecystitis. 1. Acute Cholecystitis -POD #1 -Did not tolerate full diet for lunch -Attempt again at dinner; possible late dc if improved -Continue Zofran prn nausea and morphine prn pain 2. HTN -BPs at goal off medications 3. F/E/N - Replete lytes prn - Keep NPO 5. DVT Prophylaxis - OOB - SCDs - Heparin SQ Code Status: Full Code Dispo: Requires inpatient care. Possible late dc if tolerating diet. Visit type - Emergency Visit Emergency Visit: Yes ED Registration Date: 09/14/16 Care time: The patient presented to the Emergency Department on the above date and was hospitalized for further evaluation of their emergent condition. - New Patient This patient is new to me today: No - Critical Care Critical Care patient: No - Discharge Referral Referred to [facility] Med [facility].: No
--- NOTE | 2016-09-16 14:57 | PN ---
Progress Note (short form) - Note Progress Note: ANESTHESIOLOGY POST-OP CHECK 41F S/P lap cholecystectomy under general anesthesia, POD #1. Pain 6/10 but tolerable. Tolerating PO , nausea controlled. Ambulating voiding. Vital Signs Temperature 97.9 F 09/16/16 14:19 Pulse Rate 69 09/16/16 14:19 Respiratory Rate 16 09/16/16 14:19 Blood Pressure 148/78 09/16/16 14:19 O2 Sat by Pulse Oximetry (%) 96 09/16/16 10:00 Active Medications Acetaminophen (Tylenol -) 650 mg PO Q6H PRN PRN Reason: FEVER OR PAIN Last Admin: 09/16/16 09:39 Dose: 650 mg Heparin Sodium (Porcine) (Heparin -) 5,000 unit SQ BID JESS Last Admin: 09/16/16 09:40 Dose: 5,000 unit Dextrose/Sodium Chloride (D5-1/2ns -) 1,000 mls @ 75 mls/hr IV ASDIR JESS Last Admin: 09/16/16 03:47 Dose: 75 mls/hr Ondansetron HCl (Zofran Injection) 4 mg IVPUSH Q6H PRN PRN Reason: NAUSEA AND/OR VOMITING Last Admin: 09/16/16 13:36 Dose: 4 mg Oxycodone HCl (Roxicodone -) 5 mg PO Q6H PRN PRN Reason: PAIN LEVEL 1-5 Oxycodone HCl (Roxicodone -) 10 mg PO Q6H PRN PRN Reason: PAIN LEVEL 6-10 Last Admin: 09/16/16 13:20 Dose: 10 mg Gen: awake, alert No apparent anesthesia complications. Pain controlled. Continue management as per primary team
--- NOTE | 2016-09-16 18:32 | DS ---
Physical Exam: SUBJECTIVE: Patient seen and examined. Tolerated dinner. Abdominal pain and nausea have improved. OBJECTIVE: Vital Signs Period Temp Pulse Resp BP Sys/Walls Pulse Ox Last 24 Hr 97.9 F-98.4 F 69-91 16-20 128-148/74-92 96-98 PHYSICAL EXAM GENERAL: The patient is awake, alert, and fully oriented, in no acute distress. HEAD: Normal with no signs of trauma. EYES: PERRL, extraocular movements intact, sclera anicteric, conjunctiva clear. ENT: Ears normal, nares patent, oropharynx clear without exudates, moist mucous membranes. NECK: Trachea midline, full range of motion, supple. LUNGS: Breath sounds equal, clear to auscultation bilaterally, no wheezes, no crackles, no accessory muscle use. HEART: Regular rate and rhythm, S1, S2 without murmur, rub or gallop. ABDOMEN: Soft, mild per-incisional tenderness, nondistended, normoactive bowel sounds, no guarding, no rebound, no hepatosplenomegaly, no masses. EXTREMITIES: 2+ pulses, warm, well-perfused, no edema. NEUROLOGICAL: Cranial nerves II through XII grossly intact. Normal speech, gait not observed. PSYCH: Normal mood, normal affect. SKIN: Warm, dry, normal turgor, no rashes or lesions noted. Incisions clean, dry , intact. LABS Laboratory Results - last 24 hr 09/16/16 09/16/16 06:20 06:20 WBC 8.0 RBC 4.50 Hgb 8.8 L Hct 28.5 L MCV 63.4 L MCH 19.5 L MCHC 30.7 L RDW 19.9 H Plt Count 287 MPV 9.0 Neutrophils % 75.4 Lymphocytes % 19.0 Monocytes % 5.5 Eosinophils % 0.0 D Basophils % 0.1 Sodium 140 Potassium 3.5 Chloride 104 Carbon Dioxide 24 Anion Gap 12 BUN 6 L Creatinine 0.6 Creat Clearance w eGFR > 60 Random Glucose 131 H Calcium 8.3 L Total Bilirubin 0.3 D AST 33 D ALT 52 D Alkaline Phosphatase 114 Total Protein 7.1 Albumin 3.3 L HOSPITAL COURSE: This is a 41 year old female with a history of diet-controlled HTN and GERD admitted on 09/14 with acute cholecystitis. She underwent uneventful laproscopic cholecystectomy on 09/15. Today, she initially had some difficulty tolerating a full diet. This evening, however, she was able to eat a full meal. She is afebrile with normal WBC and normal LFTs. Her BPs have remained at hoal throughout hospitalization. She will be discharged home with analgesia and will follow up in the surgical clinic with Dr. Rosado. Return precautions were reviewed. Date of Admission:09/14/16 Date of Discharge: 09/16/16 Minutes to complete discharge: 35 Discharge Summary Reason For Visit: ACUTE CHOLECYSTITIS Current Active Problems HTN (hypertension) (Chronic) Condition: Improved - Instructions Diet, Activity, Other Instructions: Dr. Rosado Discharge Instructions Dear LISA CARROLL, Post Operative Instructions Physical activity Resume your normal everyday activity as tolerated no heavy lifting or exercise until seen by your surgeon. You may walk unlimited amounts of and climb stairs. You may resume driving the car when you feel safe and comfortable behind the wheel. Wound care If you have a bandage, leave it on, and keep dry for 48 - 72 hours. After that time discard the outer bandage. If there are tapes on the skin under the outer bandage, leave them in place. They will peel off in the next 7 to 10 days. Do Not peel them off. You may shower 2 days after surgery. If there are tapes present on the skin, they can get wet. Diet There are no dietary restrictions. Eat healthy, high-fiber foods. Drink 6 to 8 glasses of liquid each day. This will assist in keeping your bowels are regular. Pain management You may take Tylenol or acetaminophen or Ibuprofen (for example, Motrin, Advil etc.) Any pain prescription medication ordered should be taken as prescribed for moderate to severe pain. Call Dr. Rosado for any of the following: Severe pain not relieved by medication Fever of 101 or higher Excessive bleeding or drainage on dressing Inability to urinate Call the office at [phone] for a post operative appointment in 7 - 10 days. Referrals: Micky Rosado MD [Staff Physician] - - Home Medications Comprehensive Discharge Medication List: Ambulatory Orders Ondansetron [Zofran Odt -] 4 mg SL TID PRN #21 od.tablet 09/16/16 Oxycodone HCl/Acetaminophen [Percocet 5-325 mg Tablet] 1 tab PO Q6H PRN #20 tablet MDD 4 tabs 09/16/16 This patient is new to me today: Yes Date on this admission: 09/16/16 Emergency Visit: Yes ED Registration Date: 09/14/16 Care time: The patient presented to the Emergency Department on the above date and was hospitalized for further evaluation of their emergent condition. Critical Care patient: No - Discharge Referral Referred to [facility] No
--- NOTE | 2016-09-17 09:35 | OP ---
DATE OF OPERATION: 09/15/2016 PREOPERATIVE DIAGNOSIS: Acute cholecystitis and cholelithiasis. POSTOPERATIVE DIAGNOSIS: Acute cholecystitis and cholelithiasis. PROCEDURE: Laparoscopic cholecystectomy. SURGEON: Micky Rosado MD SHOP FOREMAN: Karla Garner PA-C ANESTHESIA: General. OPERATIVE FINDINGS: Acute cholecystitis and cholelithiasis. The rest of the findings were unremarkable. DESCRIPTION OF PROCEDURE: The patient was placed on the operating table in supine position, and after the induction of general anesthesia, the patients abdomen was prepped with ChloraPrep and draped in sterile fashion. Pneumoperitoneum was established above the umbilicus using a Veress needle to a pressure of 15 mmHg. A 5-mm umbilical port was then placed, as well as additional 5-mm lateral ports, and the subxiphoid 12-mm port. The gallbladder was then placed on cephalad and lateral traction, and dissection was begun over the neck of the gallbladder to identify the triangle of Calot. Dissection involved opening the peritoneum medially and laterally using the electrocautery. Blunt dissection continued until the cystic duct was identified coursing from the neck of the gallbladder distally to the common bile duct. It was dissected proximally and distally for length. The artery was bluntly dissected and found to be in close proximity to the cystic duct and could not be distinctly from it. A critical view of safety was taken, and then the duct and the artery which was adherent to it were divided between large hemoclips using the EndoShears. The gallbladder was then removed from the liver bed in a retrograde fashion using electrocautery. Prior to removal from the edge of the liver, hemostasis was checked for and noted to be good, and the cystic duct stump was intact without evidence of bleeding. The gallbladder was then removed from the edge of the liver, placed in a specimen-retrieval bag, and brought out through the subxiphoid port. Pneumoperitoneum was reestablished, hemostasis verified again, and then all ports were removed under laparoscopic vision without evidence of bleeding from the port sites. The pneumoperitoneum was released, and all port sites were infiltrated with 0.5% Marcaine, and the skin incisions closed with 4-0 Monocryl in a subcuticular fashion. Steri-Strips and Band-Aid dressings were placed, and the procedure terminated at this point, and the patient aroused from general anesthesia and transferred to the post-anesthesia care unit in stable condition, awake and alert. ESTIMATED BLOOD LOSS: 20 mL. REPLACEMENTS: Crystalloid. DRAINS: None. SPECIMENS: Gallbladder and contents to Pathology. I, Micky Rosado, was physically present in the operating room from the time the patient was placed on the operating table until she was transferred to the post-anesthesia care unit in my accompaniment. MD MARANDA Sotelo/[id number]
--- NOTE | 2016-09-17 13:53 | PATH ---
Surgical Pathology Report Patient Name: LISA CARROLL Med. Rec. #: [id number] /Age/Gender: 1975 (Age: 41) / F Account: [id number] Location: [address] [place] [address]/[facility] Taken: 09/16/2016 Received: 09/16/2016 Reported: 09/17/2016 Physicians: Micky Rosado MD Specimen(s) Received GALLBLADDER Clinical History Cholecystitis, cholelithiasis Final Diagnosis GALLBLADDER, CHOLECYSTECTOMY: ACUTE, CHRONIC, AND NECROTIZING CHOLECYSTITIS AND CHOLELITHIASIS. CHOLESTEROLOSIS IS PRESENT. Electronically Signed Will Caro M.D. Gross Description Received in formalin, labeled "gallbladder," is a 7.0 x 3.0 x 2.3 cm. gallbladder with a 0.2 cm. in length portion of cystic duct attached. The outer surface is anderson colvin and varies from smooth to shaggy. The lumen contains green, tenacious bile as well as a 1.6 cm in greatest dimension green, ovoid cholelith. The mucosa is green and velvety with gold cholesterol stippling. The wall of the gallbladder ranges from 0.1-0.3 cm. in thickness. Packaging Manager sections are submitted in one cassette. /09/16/201609/16/2016
== END 2016-09-16 18:53 | disposition home or self-care (01) | DRG 263 ==
LOC: JER 16:43 → JERBED 23:08 → J6S 09-15 02:13
PROVIDERS: ADMIT Internal Medicine; ATTEND Registered Nurse Emergency
PROC: 0FT44ZZ Resection of Gallbladder, Percutaneous Endoscopic Approach (ICD-10-PCS; principal; 2016-09-15 11:30)
DX: K80.12 Calculus of gallbladder with acute and chronic cholecystitis without obstruction (principal); K21.9 Gastro-esophageal reflux disease without esophagitis; I10 Essential (primary) hypertension; K76.0 Fatty (change of) liver, not elsewhere classified; E66.9 Obesity, unspecified; Z68.33 Body mass index [BMI] 33.0-33.9, adult
CPT/HCPCS: 36415; 71020-TC; 74176; 76705-TC; 80048; 80053; 81003; 81015; 83690; 84703; 85025; 86850; 86900; 86901; 87086; 88304-TC; 93005; 93010; 94760; 99285-25; J1644